=== PATIENT | male | born 1950 | race Caucasian/White ===

== ENCOUNTER 2023-01-31 07:41 | Day surgery (SDC) | payer OTHER ==
[~2023-01-31] VITALS: Ht 165.1 cm; Wt 74.8 kg
[2023-01-31] MEDS ORDERED: fentaNYL CITRATE/PF 100 MCG/2 ML AMP ONE ×2 (09:03→09:17)
[2023-01-31] MEDS ORDERED: MIDAZOLAM HCL 5 MG/5 ML VIAL ONE ×2 (09:03→09:17)
[2023-01-31] MEDS ORDERED: DIPHENHYDRAMINE INJ 50 MG/ML VIAL ONE (09:17)
[2023-01-31 10:44] VITALS: BP_SYST 123
== END 2023-01-31 10:36 | disposition home or self-care (01) ==
LOC: SDS 07:41
PROVIDERS: ATTEND Internal Medicine
DX: D64.9 Anemia, unspecified (principal); D12.2 Benign neoplasm of ascending colon; K29.80 Duodenitis without bleeding; K29.50 Unspecified chronic gastritis without bleeding; B96.81 Helicobacter pylori [H. pylori] as the cause of diseases classified elsewhere; K64.8 Other hemorrhoids; Z86.010 Personal history of colon polyps; I12.0 Hypertensive chronic kidney disease with stage 5 chronic kidney disease or end stage renal disease; E11.22 Type 2 diabetes mellitus with diabetic chronic kidney disease; N18.6 End stage renal disease; Z90.49 Acquired absence of other specified parts of digestive tract; Z85.038 Personal history of other malignant neoplasm of large intestine; Z20.822 Contact with and (suspected) exposure to COVID-19
CPT/HCPCS: 45380; 43239; 87426; 82962; 36415; 88305; 88312; 88313; 99152; 99153; G0378; J2250; J3010; J1200